=== PATIENT | male | born 1995 | race Caucasian/White ===

== ENCOUNTER 2019-07-25 01:57 | Inpatient (IN) | payer MEDICAID, SELFPAY ==
[2019-07-25] VITALS (125 sets, daily range): BP systolic 104–125; BP diastolic 43–84; PULSE 70–107; RESP 13–25; TEMP 36.5–37.1; O2SAT 90–100
[2019-07-25] MEDS: LORazepam 2 MG/ML VIAL IVP ×2 (02:18→21:51)
[2019-07-25] MEDS: Normal Saline Flush 10 ML SYR IVP ×2 (02:18→07:51)
--- NOTE | 2019-07-25 02:45 | W.PM.HP.N ---
Date of service: 07/25/19 Time of Service: 02:45 Assessment and Plan Assessment and plan (1) Overdose of methylphenidate: Start date: 07/25/19 Status: Acute Assessment and plan: This is a 23-year-old gentleman who was transferred from [facility] ED after using IV drugs at home including heroin and methylphenidate. He does have a problem with recurrent IV drug use and tends to smash up anything that he has an inject it according to his sibling who delivered him to the [facility] ED. He is not having problems with airway maintenance at this time and with sedation his agitation is improved. We will continue IV Ativan and monitor closely for airway obstruction in the ICU. He appears to have more agitation as with the methylphenidate than sedation with the opiates with his reported IV injections recently. We will continue IV hydration and support. Long-term the patient may benefit from reestablishing with outpatient or inpatient drug treatment. He also needs more intense psychiatric evaluation treatment as an outpatient. (2) Psychomotor agitation: Start date: 07/25/19 Status: Acute Assessment and plan: Continue IV Ativan with close monitoring of airway. (3) IVDU (intravenous drug user): Status: Chronic Assessment and plan: Patient will require possible inpatient and at least more intensive outpatient treatment for his recurrent addictive behavior which is life-threatening. (4) PTSD (post-traumatic stress disorder): Status: Chronic Assessment and plan: Patient does have severe depressive symptoms at times and has had suicidal ideation and attempts in the past. He should be considered for inpatient psych treatment as she recovers from this overdose. Mental health consultation can be sought once the patient is more alert. History of Present Illness History of Present Illness Chief Complaint: Severe agitated state secondary to IV methylphenidate overdose Narrative: This is a 23-year-old gentleman who was brought to the [facility] ED by his sibling secondary to severe agitation and vomiting status post IV use of multiple substances including at least Suboxone, heroin and his Reglan which he would crush and injected. He has been doing this in the past but he relapses with his drug abuse. Is on Suboxone chronic opioid addiction. He also is prescribed Ritalin for ADHD and usually functions very well. He chronically has a mood disorder, smokes cigarettes with a rescue inhaler and has panic with agoraphobia/PTSD. I do not think he is in ongoing counseling. He has poor insight and has frequent relapses with inpatient treatment in the recent past and attempted suicide while inpatient. When the patient was treated and seen in the [facility] ED he responded to IV Ativan up to 3 mg and was sleeping at the time of transfer. He had tachycardia and fever which had resolved he had no further nausea or vomiting in the ED. It did not think he aspirated but were concerned about his airway maintenance with sedation as treating his overdose. He did receive IV hydration for slight hypotension but his tachycardia and fever as stated did resolve. Upon arrival to ICU at [facility] he became agitated again with stimulation and did receive more IV Ativan with good response and without oversedation maintaining a good airway. He had no further nausea or vomiting once again he did not appear to have aspirated. No further history review of systems was obtainable from the patient and his overdose and sedated state. Insulin was not available at this facility for further questioning. Review of Systems Narrative: As per review of [facility] ED otherwise not obtainable from patient because of mental status changes and agitation, sibling is not present as was with [facility] ED. Unobtainable due to endotracheal tube [facility] Medical History (Updated 07/25/19 @ 14:40 by Elijah Durant) ADHD (attention deficit hyperactivity disorder) (Acute) IBS (irritable bowel syndrome) (Chronic) Nicotine dependence with current use (Acute) Opioid abuse (Acute) PTSD (post-traumatic stress disorder) (Chronic) Surgical History (Updated 07/25/19 @ 07:42 by Elijah Durant) circumcision (Acute) Family History (Updated 07/25/19 @ 14:42 by Elijah Durant) Mother Depression Social History (Updated 07/25/19 @ 14:43 by Elijah Durant) Smoking/Tobacco Use Status: Current every day Drug use: Daily Substance use type: heroin and methamphetamine Meds Home Medications and Allergies Home Medications Medication Instructions Recorded Confirmed Type methylphenidate HCl 20 mg PO QID 07/25/19 07/25/19 History Allergies Allergy/AdvReac Type Severity Reaction Status Date / Time No Known Allergies Allergy Verified 07/25/19 02:50 Exam Narrative Exam Narrative: General: Patient is thin and appears appropriate for age though chronically ill, moderate distress with agitation and fidgety until Ativan IV given, alert and oriented to person and place only. HEENT: Normocephalic with eyes revealing pupils equal and react to light symmetrically, extraocular movement intact and sclera anicteric. Oropharynx with moist pink mucosa and fair dentition. External ears normal. Neck: Supple without JVD. Back: Stooped posture with no CVA tenderness. Lungs: Fair aeration and clear to auscultation percussion with no expiratory wheeze and no focalizing rales or rhonchi. Normal I:E ratio. Heart: Regular rate and rhythm at the time of my exam with no murmurs gallops appreciated. Abdomen: Scaphoid contour, soft and nontender to palpation with no palpable hepatosplenomegaly or masses. No focal guarding. Bowel sounds positive in all quadrants. Genitalia/rectal: Exam deferred. Extremities: Without clubbing, cyanosis or edema. Old and fresh needle tracks along the veins of the forearms noted. No erythema, induration or evidence of cellulitis over the arms bilaterally. Neuro: Agitated but no focal motor deficits with sensory not tested. Cranial nerves II through XII grossly intact. Psych: Agitated and slightly delirious with patient not focusing well with his agitation and hyperactivity. He is restless. Skin: Needle track boss over the forearms as mentioned at various stages of recent use, no rashes, warm and dry. Results Imaging Additional studies: Lab obtained at [facility] ED: ESR 14 mm/h, blood cultures x2 were performed, procalcitonin 0.6 which is slightly elevated with high normal being 0.5, troponin less than 0.06, TSH 1.17, CRP elevated at 7.89, UA negative, urine drug screen positive for opiates and buprenorphine, lipase less than 30, CMP with creatinine 0.7, calcium 9.4, sodium low at 136, potassium 3.9, TCO2 28.0, total protein 7.9 and albumin 4.1 with liver functions normal except for low ALT at 19, random glucose 100 ,total CK 92, CBC had a white count elevated at 10.7 which is just above normal and differential predominantly polys 81%, H&H low at 13.9 over the 40.8, MCV normal 84.1 and platelet count normal 209, lactic acid was normal at 1.4. EKG: report reviewed (Normal sinus rhythm with tachycardia, no acute ST-T changes and RR prime V1 suggesting incomplete RBBB) Imaging Studies: Chest x-ray showed no focal infiltrates with exam limited. Labs Result diagrams: 07/25/19 06:22
[2019-07-25] MEDS: LORazepam 2 MG/ML VIAL 1 MG IVP ×10 (05:19→23:55)
[2019-07-25 07:10] LABS: ALT 14 U/L (16-63); AST 13 U/L (15-37); Albumin 2.9 g/dL (3.4-5.0); Alkaline Phosphatase 81 U/L (46-116); Anion Gap 7.6 mmol/L (3-11); BUN 9 mg/dL (7-18); Bilirubin, Total 0.8 mg/dL (0.2-1.0); CO2 23.4 mmol/L (21.0-32.0); CREATININE 0.73 mg/dL (0.70-1.30); Calcium 7.8 mg/dL (8.5-10.1); Chloride 105 mmol/L (98-107); Glucose 92 mg/dL (74-106); Magnesium 1.6 mg/dL (1.8-2.4); Potassium 3.8 mmol/L (3.5-5.1); Sodium 136 mmol/L (136-145); Total Protein 6.3 g/dL (6.4-8.2)
[2019-07-25 07:11] LABS: INR 1.2 (0.9-1.1); Prothrombin Time 12.3 sec (9.3-11.0); Troponin I < 0.05 ng/Ml (<0.06)
--- NOTE | 2019-07-25 07:49 | INITIAL_ITS ---
Care Management Initial Assess REASON FOR HOSPITALIZATION:: Intravenous overdose ritalin, seroquel, trazodone PAST MEDICAL HISTORY/PAST SURGICAL HISTORY:: ADHD, IBS, Opioid abuse, PTSD, current everyday tobacco smoker. 23-year-old gentleman who was brought to the [facility] ED by his sibling secondary to severe agitation and vomiting status post IV use of multiple substances including at least Suboxone, heroin and his Reglan which he crushed and injected. He is on Suboxone for chronic opioid addiction. Chronic mood disorder, smokes cigarettes with a rescue inhaler and has panic with agoraphobia/PTSD. Poor insight, frequent relapses with inpatient treatment in the recent past and attempted suicide while inpatient. PREVIOUS FUNCTIONAL STATUS/SOCIAL/FAMILY SUPPORTS:: Cali resides in [place], [place]. He was brought to [facility] emergency department by his sibling for overdos e, with vomiting. His mother, Katina also resides in [place], [place]. CURRENT FUNCTIONAL STATUS:: Cali was sitting up in his bed, visiting with his mother and sister. He struggled throughout the morning with wanting to leave, and had periods of anxiety. ADVANCE DIRECTIVES:: None on file at [facility]. Has patient been provided with information about the portal?: No Did the patient sign up for the portal?: No CODE STATUS:: Full Code INSURANCE COVERAGE / FINANCIAL ISSUES:: Medicaid CURRENT HOME/COMMUNITY SERVICES/EQUIPMENT:: No current services or equipment at this time. PRIMARY CARE PHYSICIAN:: Guy Munoz POTENTIAL DISCHARGE NEEDS:: Contact with [facility]t[employer] Tester, discussion around substance abuse supports, likely MH Crisis Screening and safety planning. PATIENT/FAMILY EDUCATION NEEDS:: Review of instructions, discussion around self care needs, Ask Me Three. ANTICIPATED BARRIERS TO DISCHARGE:: Possible withdrawal requiring medical intervention. Discussion around MH consult/crisis screening. TRANSPORTATION:: TBD by disposition. PLAN:: Cali will continue to be closely monitored and treated in the ICU at this time. CM will continue to follow and support planning of interventions re: safe discharge planning.
--- NOTE | 2019-07-25 10:41 | PHARADMIT ---
Addendum entered by Lucille Qureshi 07/28/19 13:46: VS ok, no labs/lytes cooperative, using Nicotine inhaler, refuses patch Waiting for bed @ [facility] Addendum entered by Dave Carrero III 07/27/19 11:46: Pharmacy Note Subjective Patient transferred to [facility], has multiple mental health issues. Continues to express suicidal ideation. Objective VS-OK No Labs Assessment MD using Suboxone to treat herion/opiate issues. Plan CM working on transfer a psychiatric facilility Addendum entered by Karina Munoz 07/26/19 14:50: Pharmacy Note Subjective effects of stimulant overdose have resolved; pt expressing suicidal thoughts per progress note Objective VS-okay mag-pending Assessment few one time suboxone orders, scheduled for daily starting tomorrow heparin discontinued Plan continue to watch VS, labs and for med changes Original Note: Admission Pharmacy Clinical Review intravenous overdose ritalin/suboxone/heroin? Code Status Full Code Current Weight 64.8 kg Renally Cleared and Narrow Therapeutic Index Meds Crcl ~130 mL/min current meds okay QTc Value / Action Taken none BP Control, Fever BP 113/63 afebrile Electrolytes reviewed mag 1.6 DVT Prophylaxis heparin Opiate Usage / Scheduled Bowel Regimen Ordered no/prn Plt/SCr for Heparin / Enoxaparin plt- not done SCr 0.73 INR for Warfarin n/a H/H stable, WBC/Bands labs not done Antibiotic appropriateness none Cultures and Sensitivities none Surgical ABX d/c within 24 hr n/a DM control / Insulin Dosing BG 92 none Heart Failure (Check EF%) (SHANNON's, B-Block, Diuretics) none IV to PO Switch n/a Home Meds Reviewed no home meds listed; per H+P on suboxone, ritalin, rescue inhaler Home Meds Not Ordered no home meds ordered Comments no mag replacement ordered yet
--- NOTE | 2019-07-25 11:00 | NUR.NOTE ---
1030 Patient awake, crying, anxious, insisting he was going outside for a cigarette. He pulled his cardiac leads, 02 sat monitoring probe and blood pressure cuff off. He asked for the phone to make a phone call. He stood up to void in urinal with 2 nurses assisting him as his gait was unsteady. Ativan 1 mg Ativan given IVP. Deon Olvera CNA and Graciela Jaeger RN in room assisting patient emotionally and physically for safety. 1035 Dr. Charles was notified of patient status. 1040 Dr. Charles in room to talk to and assess patient. 1045 Patient resting quietly in bed with eyes closed. Patient fell asleep before he was able to make a phone call. Nursing Note:
[2019-07-25] MEDS: Normal Saline 1,000 ML 125 ML IV ×2 (11:17→18:15)
[2019-07-25] MEDS: Buprenorphine/Naloxone 8 mg/2 mg FILM 1 EACH SL (14:36)
--- NOTE | 2019-07-25 14:46 | NUR.NOTE ---
Patient is waking up. He is crying. His girlfriend, mother, and grandparents are in the room consoling patient at this time. He just took his dose of Suboxone and is drinking odell giovanny. Nursing Note:
--- NOTE | 2019-07-25 17:38 | PGE_ITS ---
Date of Service Date of service: 07/25/19 Time of Service: 17:39 Subjective Subjective Interval history since last seen: Events: Became alert and threatening to leave in late morning, agititated. Given nicotrol inhaler. treated with lorazepam. Physcial exam noted pupils 7mm marah, clammy skin, sniffles, track boss on arms. Patient reported taking 12-16mg suboxone daily on street. Given 8mg/2mg dose here. Monitor and consider redosing prn. I conducted family meeting around 2 pm for 30 minutes. Patient was sedated at the time. Mother, grandfather, grandmother, GF there. They reviewed his history of learning disability, severe anxiety, and drug use. They are concerned that he is not competent to make decisions. Confirm that he has been shooting up methylfenidate and other meds at times. They want him to get help. We discussed options for getting into MAT treatment, getting additional evaluation including neuropsychiatric, and addiction treatment options. The patient has expressed interest in [facility] and a desire to get off drugs. Patient had another episode of agitation around 4pm and treated with additional lorazepam for safety. Contininuing ICU monitoring given mental status. No cardiac events, he is pulling off the monitor. Okay to stop this if he does not tolerate. 30-45 minutes critical care time spent re-evaluating and monitoring patient throughout the day. Objective Objective Clinical Data: Abnormal lab results 07/25/19 07/25/19 Range/Units 06:22 06:22 PT 12.3 H (9.3-11.0) sec INR 1.2 H (0.9-1.1) Calcium 7.8 L (8.5-10.1) mg/dL Magnesium 1.6 L (1.8-2.4) mg/dL AST 13 L (15-37) U/L ALT 14 L (16-63) U/L Total Protein 6.3 L (6.4-8.2) g/dL Albumin 2.9 L (3.4-5.0) g/dL Vital Signs Temperature 36.8 C 07/25/19 15:51 Temperature Source Temporal Artery Scan 07/25/19 15:51 Pulse 81 07/25/19 16:02 Pulse 80 07/25/19 17:10 Respiratory Rate 18 07/25/19 17:00 Respiratory Effort 07/25/19 15:51 Respiratory Depth Normal 07/25/19 15:51 Respiratory Pattern Normal 07/25/19 15:51 Blood Pressure 125/54 L 07/25/19 16:02 Blood Pressure Mean 72 07/25/19 16:02 Blood Pressure Position Supine 07/25/19 15:51 Pulse Oximetry 97 07/25/19 17:22 Oxygen Delivery Method Room Air 07/25/19 17:22 Oxygen Flow Rate 0 07/25/19 17:22 Intake & Output 07/24/19 07/25/19 07/25/19 23:59 11:59 23:59 Intake Total Output Total 1974 400 / 2375 Balance -1954 / - Weight 64.8 kg Intake: IV Output: Urine 1974 / 2375 Other: Urine Color Yellow Yellow Urine Appearance Clear Clear Urine Odor Normal Normal Comment Voiding in urinal with 2 assist to stand. Voiding Methods Urinal Urinal Laboratory Results PT 12.3 sec (9.3-11.0) H 07/25/19 06:22 INR 1.2 (0.9-1.1) H 07/25/19 06:22 Sodium 136 mmol/L (136-145) 07/25/19 06:22 Potassium 3.8 mmol/L (3.5-5.1) 07/25/19 06:22 Chloride 105 mmol/L (98-107) 07/25/19 06:22 Carbon Dioxide 23.4 mmol/L (21.0-32.0) 07/25/19 06:22 Anion Gap 7.6 mmol/L (3-11) 07/25/19 06:22 BUN 9 mg/dL (7-18) 07/25/19 06:22 Creatinine 0.73 mg/dL (0.70-1.30) 07/25/19 06:22 Estimated GFR/1.73 m2 >= 60.00 (mL/min/1.73m2) 07/25/19 06:22 Glucose 92 mg/dL (74-106) 07/25/19 06:22 Calcium 7.8 mg/dL (8.5-10.1) L 07/25/19 06:22 Magnesium 1.6 mg/dL (1.8-2.4) L 07/25/19 06:22 Total Bilirubin 0.8 mg/dL (0.2-1.0) 07/25/19 06:22 AST 13 U/L (15-37) L 07/25/19 06:22 ALT 14 U/L (16-63) L 07/25/19 06:22 Alkaline Phosphatase 81 U/L (46-116) 07/25/19 06:22 Troponin I < 0.05 ng/Ml (<0.06) 07/25/19 06:22 Total Protein 6.3 g/dL (6.4-8.2) L 07/25/19 06:22 Albumin 2.9 g/dL (3.4-5.0) L 07/25/19 06:22
--- NOTE | 2019-07-25 18:42 | NUR.NOTE ---
Nursing Note: 1600 Pt exhibiting increasing restlessness after departure of mother and girlfriend, climbing out of door side of bed stating he wanted to use a real bathroom. Oblivious to tension on IV line. Redirected with 2-nurse assist to get out of window side of bed. Able to be convinced to stand and void in urinal. Unsteady on feet. Impulsive. Two-nurse assist to redirect him back into the bed and managed the IV and monitor lines. notifed about increasing agitation.
[2019-07-26] VITALS (52 sets, daily range): BP systolic 94–116; BP diastolic 54–67; PULSE 60–99; RESP 10–33; TEMP 36.5–36.9; O2SAT 94–99
[2019-07-26] MEDS: LORazepam 2 MG/ML VIAL 1 MG IVP (00:05)
[2019-07-26] MEDS: LORazepam 2 MG/ML VIAL IVP ×5 (01:18→06:10)
[2019-07-26] MEDS: Normal Saline 1,000 ML 125 ML IV ×2 (02:35→10:51)
[2019-07-26] MEDS: Buprenorphine/Naloxone 8 mg/2 mg FILM 1 EACH SL ×2 (03:51→14:34)
[2019-07-26] MEDS: hydrOXYzine HCL 50 MG TAB PO ×3 (03:51→18:56)
[2019-07-26] MEDS: Heparin 5,000 UNITS/ML VIAL 5000 UNITS SC (05:13)
[2019-07-26 06:30] LABS: HGB 13.1 g/dL (13.5-17.5); Mean Corp. HGB Concentration 34.5 g/dL (32.0-36.0); Mean Corpuscular Hemoglobin 29.2 pg (27.0-33.0); Mean Corpuscular Volume 84.6 fL (80-95); Mean Platelet Volume 8.3 fL (8.0-11.0); Platelet Count 213 x1000/uL (130-400); RBC 4.49 m/cumm (4.50-6.00); RBC Distribution Width 12.7 % (11.8-14.1); White Blood Cell Count 5.77 k/cumm (4.4-10.8)
--- NOTE | 2019-07-26 09:26 | NUR.NOTE ---
0915--Patient woke up sat on side of bed and stated I'm ready to go home. This nurse encouraged patient to lie back in the bad so I could put the bed in the chair position and asked patient if he was hungry. Patient states yes. This nurse placed patient breakfast tray in room and noted patient was resting quietly with eyes closed at this time. Nursing Note:
--- NOTE | 2019-07-26 13:37 | W.PM.PROGNOT ---
Date of Service Date of service: 07/26/19 Time of Service: 13:37 Assessment and Plan Assessment and plan (1) Overdose of methylphenidate: Status: Acute Assessment and plan: At this point affects of stimulant overdose have resolved. Intermittent somnolence associated with high doses of lorazepam overnight, but improving. At this point he is clearly expressing suicidal thoughts with specific plans. He should be evaluated by crisis team before going home. (2) IVDU (intravenous drug user): Status: Chronic Assessment and plan: polysubstance. Will rescreen for HIV and Hep B/C if we can get another blood draw before discharge. (3) Opiate dependence: Status: Acute Assessment and plan: Symptoms and signs of opioid withdrawl improved with suboxone. He is tolerating 16mg over the past 24 hours. I will continue at this dose for now. If we are able to set up an outpatient treatment plan, I can prescribe for up to a week as I am waivered. Other option would be a taper regimen, but with his history we should make every effort to engage in formal treatment. assistant coach coming to help with treatment navigation as well. (4) Suicidal ideation: Status: Acute Assessment and plan: as above. (5) Smoker: Status: Acute Assessment and plan: NRT prescribed. He isn't interested in quitting. (6) DVT prophylaxis: Status: Acute Assessment and plan: At this point he is active and given age and low risk medical prophylaxis not indicated. Subjective Subjective Patient reports: denies bowel movement, diarrhea, nausea, vomiting and fever Interval history since last seen: 24 hr: intermittent agititation overnight, recieved 14mg of lorazepam total. None given since 7am. Given 2nd dose 8mg bup/naloxone at 3am Becoming more alert this afternoon. He denies pain. He states he is always depressed. When asked about SI, states he isn't sure. No BMs, states he does get constipated. Exam Narrative Exam Narrative: General: Sleepy, arouses with voice. Holds head up and has conversation without agitation, but dozes off when head back on pillow. No acute distress. Later agitated and threatening to leave and to hang himself or inject himself with bleach. HEENT: Atraumatic. MMM, pupils 5mm marah, reactive Lungs: CTAb, nl effort. CV: RRR, no m/g abd: soft, nt/nd ext: no cynosis, edema. Objective Objective Clinical Data: Abnormal lab results 07/26/19 Range/Units 06:13 RBC 4.49 L (4.50-6.00) m/cumm Hgb 13.1 L (13.5-17.5) g/dL Hct 38.0 L (40.0-50.0) % Vital Signs Temperature 36.6 C 07/26/19 12:20 Temperature Source Temporal Artery Scan 07/26/19 12:20 Pulse 66 07/26/19 08:00 Pulse 69 07/26/19 12:20 Respiratory Rate 15 07/26/19 12:20 Respiratory Effort Non-Labored 07/26/19 12:20 Respiratory Depth Normal 07/26/19 12:20 Respiratory Pattern Normal 07/26/19 12:20 Blood Pressure 110/57 L 07/26/19 08:00 Blood Pressure Mean 68 07/26/19 08:00 Blood Pressure Position Supine 07/26/19 07:32 Pulse Oximetry 96 07/26/19 12:20 Oxygen Delivery Method Room Air 07/26/19 12:20 Oxygen Flow Rate 0 07/26/19 12:20 Pain Level 10 07/26/19 03:20 Comment 07/25/19 18:00 Intake & Output 07/25/19 07/26/19 07/26/19 23:59 11:59 23:59 Intake Total 1350.833 / 2482.666 5551 / 2100 Output Total 1600 / 3575 2175 / 2175 Balance -249.167 / -2204.167 -75 / -75 Weight 65.9 kg Intake: IV 870.833 / 606.094 9565 / 1999 Oral 480 / 480 100 / 100 Output: Urine 1600 / 3575 2175 / 2175 Other: Urine Color Yellow Yellow Urine Appearance Clear Clear Urine Odor Normal Normal Comment Pt getting OOB to void at this time Patient voids in urinal. Patient voids in urinal. Voiding Methods Urinal Urinal Laboratory Results WBC 5.77 k/cumm (4.4-10.8) 07/26/19 06:13 RBC 4.49 m/cumm (4.50-6.00) L 07/26/19 06:13 Hgb 13.1 g/dL (13.5-17.5) L 07/26/19 06:13 Hct 38.0 % (40.0-50.0) L 07/26/19 06:13 MCV 84.6 fL (80-95) 07/26/19 06:13 MCH 29.2 pg (27.0-33.0) 07/26/19 06:13 MCHC 34.5 g/dL (32.0-36.0) 07/26/19 06:13 RDW 12.7 % (11.8-14.1) 07/26/19 06:13 Plt Count 213 x1000/uL (130-400) 07/26/19 06:13 MPV 8.3 fL (8.0-11.0) 07/26/19 06:13 PT 12.3 sec (9.3-11.0) H 07/25/19 06:22 INR 1.2 (0.9-1.1) H 07/25/19 06:22 Sodium 136 mmol/L (136-145) 07/25/19 06:22 Potassium 3.8 mmol/L (3.5-5.1) 07/25/19 06:22 Chloride 105 mmol/L (98-107) 07/25/19 06:22 Carbon Dioxide 23.4 mmol/L (21.0-32.0) 07/25/19 06:22 Anion Gap 7.6 mmol/L (3-11) 07/25/19 06:22 BUN 9 mg/dL (7-18) 07/25/19 06:22 Creatinine 0.73 mg/dL (0.70-1.30) 07/25/19 06:22 Estimated GFR/1.73 m2 >= 60.00 (mL/min/1.73m2) 07/25/19 06:22 Glucose 92 mg/dL (74-106) 07/25/19 06:22 Calcium 7.8 mg/dL (8.5-10.1) L 07/25/19 06:22 Magnesium 1.6 mg/dL (1.8-2.4) L 07/25/19 06:22 Total Bilirubin 0.8 mg/dL (0.2-1.0) 07/25/19 06:22 AST 13 U/L (15-37) L 07/25/19 06:22 ALT 14 U/L (16-63) L 07/25/19 06:22 Alkaline Phosphatase 81 U/L (46-116) 07/25/19 06:22 Troponin I < 0.05 ng/Ml (<0.06) 07/25/19 06:22 Total Protein 6.3 g/dL (6.4-8.2) L 07/25/19 06:22 Albumin 2.9 g/dL (3.4-5.0) L 07/25/19 06:22
--- NOTE | 2019-07-26 13:39 | PDOC.CMPRO ---
Care Management Progress Note S/O: Cali continues to be closely monitored in the ICU. He is being treated for withdrawal and agitation with lorazepam and suboxone. Per MD meeting with family medical history includes learning disability, severe anxiety and substantial drug abuse. When alert, Cali becomes agitated and demands to leave AMA. CM provided patient education around requirement for crisis screening prior to discharge due to concern for SI with history of attempt while in a inpatient setting. CM met with Cali and his mother to provide patient education around safety planning and requirement of MH screening. Cali made multiple suicidal statements when CM met with him. When CM reviewed concerns around Cali's statements he reported no I said I wish not that I would. He attempted to pull out his IV, CHRISTOPHER Hernandez intervened successfully and Cali identified her as a support person and asked this proposal manager writer to leave. AURELIO A: 23 year old male admitted to [facility] 07/25/19 for Intravenous overdose of ritalin/suboxone/heroin P: Cali will be evaluated by a [facility] Crisis Screener and meet with a Prep Manager as well. CM will continue to follow and support discharge planning per recommendations and patient wishes.
--- NOTE | 2019-07-26 14:48 | NUR.NOTE ---
At approximately 1300 this afternoon patient woke up, was asking for his parents. This nurse told him his Mom was on her way and would be here any time. Patient upset that his parents were not here. Patient's Mom stated to this nurse (this morning via phone call) she slept in this morning as she did not feel well and was very concerned about Cali. Patient became angry and stated I'm going home. Dr. Charles and Annia Rios from care management were notified and came to patient's room. This nurse explained to patient that he had had a lot of medications and Dr. Charles would be the one to determine when he is ready to be discharged. His mother, girlfriend and little brother arrived in room. Patient again stated he was going home and his mother was to take him home. His mother and girlfriend told patient they were not comfortable taking him home and he was not ready to go home. His mother stated she could not handle him at home like this. Patient became very upset and threw everything on the bedside table across the room. Patient got OOB (slightly unsteady gait) pulled his cardiac lead set blood pressure cuff off and started pulling at his IV to pull it out as he again stated he was going home. This nurse firmly encouraged patient to leave his IV intact. With much persuasion, several times, he did not pull his IV out. Dr. Charles and Annia Rios locker room manager in room. They talked with patient for approximately 15 minutes. Patient requested everyone leave the room. This nurse stayed in room with patient. Patient asked this nurse for some bleach. When asked why he wanted bleach he responded with I want to put it in my vein to kill myself. This nurse continued to support patient in room then at approximately 1434 gave the patient his prescribed Suboxone and Atarax. This nurse continued to support patient and keep patient safe. Nursing Note:
[2019-07-26 15:27] LABS: Magnesium 1.7 mg/dL (1.8-2.4)
--- NOTE | 2019-07-26 16:46 | PDOC.MHCN ---
Date of service: 07/26/19 Time of Service: 14:15 Mental Health Crisis Note Presenting Issue How did you arrive at the ED and why did you come: Client was in ICU for intravenous over dose, with the requirement to see a mental health screener before discharge. This technical report writer arrived at the hospital to screen patient for suicidality. Precipitating Factors Cali is a 23 year old male with opiate dependency, he resides with his mother - Adrienne Booth, sujatha Shay, step father and siblings. Cali reported to this technical report writer that he was depressed and will isolate, as soon as, he gets home. That he will OD on his Ritalin, he'll take it all and it will end it. Patient asked nurse, Mary Bergeron, earlier today, if they had bleach, when the nurse asked why he would need bleach, he replied I want to put it in my vein to kill myself. Cali continued to make multiple suicidal statements, to the gardening manager to the affect that he wanted to blow his head off. Family met with this technical report writer and reported that they felt that they could not provide Cali with the care that he needs, as he manipulates and is dishonest, and they felt that he would not tell them the truth. Disposition BEHAVIOR: Cali threatened to remove his IV and leave AMA, he was informed that the medical staff would just put another one in. Cali was labile, and combative to limit setting. His frustration tolerance was low. He refereed to family members as fucking cunrosemary when asked to elaborate he changed the subject to how he felt that no one cared and how he felt unsafe. EYE CONTACT: Client was able to maintain appropriate eye contact when eyes stayed open. however, at times his eyes were half closed or all the way closed. MOOD: Client appears to be labile, irritable, angry, depressed, and tearful. AFFECT: Client appeared to see labile, frustrated, irritable, and oppositional during the assessment. APPETITE: Client ate during the assessment. SLEEP(trouble falling/staying asleep: It was reported that the client had been resting for the majority of the day. Plan Client will remain at [facility] and will be screened by a [facility] for involuntary treatment. Signature Clinician's Name/Title: Nata Garibay-Jeni - Emergency, honey grader and blender, mental health screener
--- NOTE | 2019-07-26 18:50 | CMPROGNOTE_ITS ---
Care Management Progress Note INVOLUNTARY FOR INPATIENT PSYCHIATRIC STABILIZATION. Cali has not been appropriate when alert, and struggles to accept limits appropriately. OMEGA FABIAN called prior to MH screening due to increased agitation. Cali is no demonstrating appropriate coping and communication skills at this time. Safety plan has been established with patient, and care team, to adhere to patient goals, identify restrictions based on behavioral status, address nutrition, and determine allowed personal belongings, tools for hygiene and personal care. Determine level of activity including ambulation, level of supervision, visitors, and determine privileges based on behaviors and level of engagement by pt. SAFETY PLAN: 1. Will remain on suicide precautions. In Paper Clothes or Hospital Gown. 2. Will remain in room under direct supervision of one-on-one staff at all times provided by [employer]; JUANY, FISH AND WILDLIFE BIOLOGIST product demonstrator. 3. May have paper cups, plates, finger foods. 4. Follow [facility] Management of the Admitted Behavioral Health Patient policy. 5. Comfort bath system only. 6. No personal belongings 7. Visitors-Limited to his mother, Adrienne at this time. 8. Activities: Soft items permitted per RN discretion. 9. Due to INVOLUNTARY status, Cali will have a second certification within twenty four hours with [facility] Psychiatrist. Patient is unable to leave [facility], as he is being held involuntarily by [facility]. Patient is currently involuntarily at [facility] and seeking inpatient admission when a bed becomes available. [facility] Frontline Binder Fixer will continue seeking placement. Please contact the Food Services Coordinator Client Technical Specialist ([phone]) and [facility] Binder Fixer ([phone]) for any needed changes in the Safety Plan. Safety plan has been provided to interdepartmental care team. - MH Services (Omit if N/A) Current MH Services: Psychiatric Inp (INVOLUNTARY)
[2019-07-26] MEDS: LORazepam 1 MG TAB PO (21:40)
--- NOTE | 2019-07-26 21:55 | CMPROGNOTE_ITS ---
Care Management Progress Note INVOLUNTARY FOR INPATIENT PSYCHIATRIC STABILIZATION. Cali continues to struggle to accept limits appropriately, he engaged with Psychiatrist during 2nd Certification and was found to meet criteria to continue to be held involuntarily. OMEGA FABIAN immediately after [facility] certification as Cali began to posture, make verbal threats and report that he was leaving and willing to fight. OMEGA FABIAN once again cleared without restraint due to de-escalation techniques and consistent directives. Cali was successfully transferred to M/S floor and into transition bed area. He then became angry, kicking the mas and posturing toward academic support assistant. Shortly thereafter Cali became teary and struggled to express his emotions and communicate. Cali continues to demonstrate maladaptive coping and communication skills at this time, and required an extended period of support to regulate. Anticipate Cali will r equire consistent, assertive limit setting as he is reportedly manipulative and engages in power struggles. He attempts to direct care and barter for privileges. Cali will be directed that when he follows expectations, his privileges will increase. CM reviewed safety plan changes due to removal of phone, and agreed to revisit safetly plan with Cali in the morning as well as review of status and patient rights per his request. Cali is going to attempt to rest this evening and maintain his currently calm demeanor. [facility] crisis screener, Kasey, told Cali she would be available for support via phone as needed and encouraged him to request she be paged at [phone] if needed. Kasey reported she would return to [facility] in the morning to introduce Cali to [place]; crisis screener scheduled for tomorrow. Safety plan has been established with patient, and care team, to adhere to patient goals, identify restrictions based on behavioral status, address nutrition, and determine allowed personal belongings, tools for hygiene and personal care. Determine level of activity including ambulation, level of supervision, visitors, and determine privileges based on behaviors and level of engagement by pt. SAFETY PLAN: 1. Will remain on suicide precautions. Permitted to have his own clothing. 2. Will remain in room under direct supervision of one-on-one staff at all times provided by [employer]; JUANY, PAVING BED MAKER supervisor audit clerks. 3. May have paper cups, plates, finger foods, safety spoon. 4. Follow [facility] Management of the Admitted Behavioral Health Patient policy. 5. Comfort bath system only, bathroom available in patient room. 6. No personal belongings 7. Visitors-Limited to his mother, Adrienne at this time. 8. Activities: Soft items permitted per RN discretion, Television and remote permitted at RN discretion. 9. No phone contact at this time. 10. Due to INVOLUNTARY status, Cali will remain at [facility], until disposition is coordinated through [facility]. Patient is currently involuntarily at [facility] and [facility] is seeking inpatient admission when a bed becomes available. [facility] Frontline Poultry Husbandry Teacher will continue seeking placement and reports referrals have been faxed; awaiting continued coordination tomorrow morning. Please contact the Car Changer Glass Cutting Machine Feeder ([phone]) and [facility] Poultry Husbandry Teacher ([phone]) for any needed changes in the Safety Plan. Safety plan has been provided to interdepartmental care team. - MH Services (Omit if N/A) Current MH Services: Psychiatric Inp (Involuntary.)
--- NOTE | 2019-07-27 02:23 | NUR.NOTE ---
Nursing Note: At 2130 hrs., Pt received from ICU staff via wheelchair to Rm 235 Transition Room, fully awake and verbally upset and banging the mas of the room, health team around, redirecting and full support provided by the team, Pt was on tears, continuously pacing and increasingly agitated. Ativan po administered and tolerated well, Finally, stayed on bed and ate chips, ice cream and had chcolate milk .Calmed down & remains on bed. Mental health staff reassured pt of her availability if needed tonight. The financial writer was introduced to pt and established good rapport to pt., Endorsed to [employer] at 2300 hrs., Pt asleep on lying position, facing on the window.
[2019-07-27] MEDS: Buprenorphine/Naloxone 8 mg/2 mg FILM 2 EACH SL (08:13)
[2019-07-27 08:38] VITALS: BP 138/87; PULSE 96; RESP 18; TEMP 37; O2SAT 97
--- NOTE | 2019-07-27 10:44 | CMPROGNOTE_ITS ---
- If Service Date Differs Date of service: 07/27/19 Time of Service: 10:44 Care Management Progress Note INVOLUNTARY FOR INPATIENT PSYCHIATRIC STABILIZATION. Cali continues to struggle to accept limits appropriately. He attempts to bargain and direct his plan of care. Cali's girlfriend Lyn accompanied Mom when she arrived to visit this morning. Mom stated that she feels Lyn will have a positive influence on Cali and recommends that she be allowed to visit. Mental Health screener Rylee present to evaluate Cali and follow up on referrals. LAKESHIA and Jose Roberto are reviewing his information and additional calls are being made. Anticipate Cali will require consistent, assertive limit setting as he is reportedly manipulative and engages in power struggles. Cali will be directed that when he follows expectations, his privileges will increase. CM reviewed safety plan changes and will continue to revise plan if placement is not found later in the day. CM also reviewed status and patient rights. Safety plan has been established with patient, and care team, to adhere to patient goals, identify restrictions based on behavioral status, address nutrition, and determine allowed personal belongings, tools for hygiene and p ersonal care. Determine level of activity including ambulation, level of supervision, visitors, and determine privileges based on behaviors and level of engagement by pt. Huddle held at 10;15 am. Attendees: Dara, Nursing Supervisors, corina Mckee, AURELIO Parikh, nurse Aneudy, CC Sana SAFETY PLAN: 1. Will remain on suicide precautions. Permitted to have his own clothing. 2. Will remain in room under direct supervision of one-on-one staff at all times provided by [employer]; JUANY, POISING INSPECTOR feather curling machine operator. 3. May have paper cups, plates, finger foods, safety spoon. 4. Follow [facility] Management of the Admitted Behavioral Health Patient policy. 5. Comfort bath system only, bathroom available in patient room. 6. No personal belongings 7. Visitors-Limited to his mother, Adrienne and girlfriend Lyn. Visits with Lyn to be supervised by nurse or MH staff. 8. Activities: Soft items permitted per RN discretion, Television and remote permitted at RN discretion. 9. No phone contact at this time except for Mom and Lyn.. 10. Due to INVOLUNTARY status, Cali will remain at [facility], until disposition is coordinated through [facility]. Patient is currently involuntarily at [facility] and [facility] is seeking inpatient admission when a bed becomes available. [facility] Frontline Health Care Liaison will continue seeking placement and reports referrals have been faxed; awaiting continued coordination tomorrow morning. Please contact the Scout Cost Analyst ([phone]) and [facility] Health Care Liaison ([phone]) for any needed changes in the Safety Plan. Safety plan has been provided to interdepartmental care team.
--- NOTE | 2019-07-27 10:59 | PDOC.MHCN ---
Date of service: 07/27/19 Time of Service: 10:59 Mental Health Crisis Note Presenting Issue How did you arrive at the ED and why did you come: Pt was brought to the ER Saturday via ambulance from [facility] after an o.d. of a speedball. Through the course of the weekend he was medically cleared to go home and an EE was written. Precipitating Factors Today Pt is slightly agitated because he wants to see his girlfriend and does not want to be here. I explain that he needs to stay at this time for admission to a hospital. He stated I don't care once they let me out I'm shooting up with all kinds of drugs. I'm going to do it. Mother redirected Pt and he responded well. At other times I had re-directed him and he did so appropriately as well. He behaves like a teenager in how he demands to see her. I spoke with the mother who is with him and she supports a visit as the girlfriend she reports is able to keep him calm. We discuss this in a huddle and agree to allow her to have a visit as long as it is supervised for appropriateness. This visit went well according to the Nurse who supported it. Pt reports that he just ate an egg sandwich and slept well last night. He understands why he is here and is still not willing to go voluntarily. Disposition BEHAVIOR: Pt behaves like a teenager and responds well to humor to redirect him. EYE CONTACT: good MOOD: agitated, depressed, anxious AFFECT: flat and smirking when he is caught not being forthcoming. APPETITE: okay according to Pt SLEEP(trouble falling/staying asleep: Okay according to Pt. Plan Hospitals have been called I am waiting to hear back from them as to bed avaialbility. Signature Clinician's Name/Title: Rylee Díaz MS Emergency Services Clinician
--- NOTE | 2019-07-27 11:08 | PDOC.CMSAFE ---
- If Service Date Differs Date of service: 07/27/19 Time of Service: 11:08 Care Management Safety Plan Safety plan has been established with patient, and care team, to adhere to patient goals, identify restrictions based on behavioral status, address nutrition, and determine allowed personal belongings, tools for hygiene and personal care. Determine level of activity including ambulation, level of supervision, visitors, and determine privileges based on behaviors and level of engagement by pt. Huddle held at 10:15 am. Attendees: Dara, Nursing Supervisors, MH mayaer Rylee, AURELIO Parikh, nurse Aneudy, CC Sana SAFETY PLAN: 1. Will remain on suicide precautions. Permitted to have his own clothing. 2. Will remain in room under direct supervision of one-on-one staff at all times provided by [employer]; JUANY, DEVICE ENGINEER music video director. 3. May have paper cups, plates, finger foods, safety spoon. 4. Follow [facility] Management of the Admitted Behavioral Health Patient policy. 5. Comfort bath system only, bathroom available in patient room. 6. No personal belongings 7. Visitors-Limited to his mother, Adrienne and girlfriend Lyn. Visits with Lyn to be supervised by nurse or staff. 8. Activities: Soft items permitted per RN discretion, Television and remote permitted at RN discretion. 9. No phone contact at this time except for Mom and Lyn.. 10. Due to INVOLUNTARY status, Cali will remain at [facility], until disposition is coordinated through [facility]. Patient is currently involuntarily at [facility] and [facility] is seeking inpatient admission when a bed becomes available. [facility] Frontline Hygiene Assistant will continue seeking placement and reports referrals have been faxed; awaiting continued coordination tomorrow morning. Please contact the Oil Mixer Bicycle Fitter ([phone]) and [facility] Hygiene Assistant ([phone]) for any needed changes in the Safety Plan. Safety plan has been provided to interdepartmental care team.
--- NOTE | 2019-07-27 11:24 | W.NUTCONSULT ---
Date of service: 07/27/19 Time of Service: 11:24 Nutritional Consult ASSESSMENT: 23 year old admitted with suicidal ideation, long hx of IV drug use. Following regular meal plan with poor intake. BMI wnl. Will monitor po intake and weight trends. At high nutritional risk in view of IV drug use and poor intake. Estimated needs: [id number] kcal, 65-75 g protein. 2400 ml fluid. Awaiting rehab placement. MONITORING AND EVALUATION: will monitor po intake and weight trends Time Spent in Nutritional Counseling and Treatment: 0 time spent face to face
[2019-07-27] MEDS: LORazepam 1 MG TAB PO (11:37)
--- NOTE | 2019-07-27 12:06 | W.PM.PROGNOT ---
Date of Service Date of service: 07/27/19 Time of Service: 12:06 Assessment and Plan Assessment and plan (1) Overdose of methylphenidate: Status: Acute Assessment and plan: At this point affects of stimulant overdose have resolved. Intermittent somnolence improved, so I do think it was related to lorazepam. (2) IVDU (intravenous drug user): Status: Chronic Assessment and plan: Rescreen for HIV and Hep B/C pending. (3) Opiate dependence: Status: Acute Assessment and plan: Symptoms and signs of opioid withdrawl improved with suboxone. He received 60 mg yesterday and this morning and does not appear to be opiate toxic or oversedated. We will plan to continue on 60 mg and hopefully can get into a treatment program to continue with medical assisted treatment along with behavioral care. (4) Suicidal ideation: Status: Acute Assessment and plan: No under involuntary hospitalization. Pending placement in psychiatric facility. He is medically cleared for discharge when a bed is found. (5) Smoker: Status: Acute Assessment and plan: NRT prescribed. He isn't interested in quitting. (6) DVT prophylaxis: Status: Acute Assessment and plan: At this point he is active and given age and low risk medical prophylaxis not indicated. Subjective Subjective Patient reports: no new complaints; denies nausea, vomiting, shortness of breath and fever Interval history since last seen: 24 hours: EE paperwork filled out yesterday evening after patient made explicit suicidal threats. 1 dose of lorazepam overnight Patient states he feels fine today. Physically, he denies any fevers, pain, or other concerning symptoms. Today, he denies suicidal ideation and states he made comments yesterday because he was pissed off. Exam Narrative Exam Narrative: General: Alert, sitting up in bed comfortably without nodding off. Speech coherent and intelligible. Not currently agitated. HEENT: Atraumatic. MMM, pupils 4mm marah, reactive Lungs: nl effort. ext: no cynosis, edema. Neurologic: Normal speech. Normal movement of 4 extremities. Grossly coordinated while sitting, but per RN still stumbling a bit on his feet when walking. Objective Objective Clinical Data: Abnormal lab results 07/26/19 Range/Units 15:11 Magnesium 1.7 L (1.8-2.4) mg/dL Vital Signs Temperature 37 C 07/27/19 08:38 Temperature Source Tympanic 07/27/19 08:38 Pulse 96 H 07/27/19 08:38 Pulse Rhythm Regular 07/27/19 09:40 Pulse 76 07/26/19 12:55 Respiratory Rate 18 07/27/19 08:38 Respiratory Effort Non-Labored 07/27/19 09:40 Respiratory Depth Normal 07/27/19 09:40 Respiratory Pattern Normal 07/27/19 09:40 Blood Pressure 138/87 07/27/19 08:38 Blood Pressure Mean 75 07/26/19 16:10 Blood Pressure Position Supine 07/26/19 07:32 Pulse Oximetry 97 07/27/19 08:38 Oxygen Delivery Method Room Air 07/27/19 08:38 Oxygen Flow Rate 0 07/27/19 08:38 Pain Level 0 07/27/19 08:38 Comment 07/25/19 18:00 Intake & Output 07/26/19 07/27/19 07/27/19 23:59 11:59 23:59 Intake Total 825.000 / 2925.000 250 / 250 Output Total 1000 / 3175 Balance -175.000 / -250.000 250 / 250 Intake: IV 585.000 / 2585.000 Oral 240 / 340 250 / 250 Output: Urine 1000 / 3175 Other: Urine Color Yellow Yellow Urine Appearance Clear Clear Comment Voiding clear yelllow urine in urinal. Voiding Methods Urinal Toilet Laboratory Results WBC 5.77 k/cumm (4.4-10.8) 07/26/19 06:13 RBC 4.49 m/cumm (4.50-6.00) L 07/26/19 06:13 Hgb 13.1 g/dL (13.5-17.5) L 07/26/19 06:13 Hct 38.0 % (40.0-50.0) L 07/26/19 06:13 MCV 84.6 fL (80-95) 07/26/19 06:13 MCH 29.2 pg (27.0-33.0) 07/26/19 06:13 MCHC 34.5 g/dL (32.0-36.0) 07/26/19 06:13 RDW 12.7 % (11.8-14.1) 07/26/19 06:13 Plt Count 213 x1000/uL (130-400) 07/26/19 06:13 MPV 8.3 fL (8.0-11.0) 07/26/19 06:13 PT 12.3 sec (9.3-11.0) H 07/25/19 06:22 INR 1.2 (0.9-1.1) H 07/25/19 06:22 Sodium 136 mmol/L (136-145) 07/25/19 06:22 Potassium 3.8 mmol/L (3.5-5.1) 07/25/19 06:22 Chloride 105 mmol/L (98-107) 07/25/19 06:22 Carbon Dioxide 23.4 mmol/L (21.0-32.0) 07/25/19 06:22 Anion Gap 7.6 mmol/L (3-11) 07/25/19 06:22 BUN 9 mg/dL (7-18) 07/25/19 06:22 Creatinine 0.73 mg/dL (0.70-1.30) 07/25/19 06:22 Estimated GFR/1.73 m2 >= 60.00 (mL/min/1.73m2) 07/25/19 06:22 Glucose 92 mg/dL (74-106) 07/25/19 06:22 Calcium 7.8 mg/dL (8.5-10.1) L 07/25/19 06:22 Magnesium 1.7 mg/dL (1.8-2.4) L 07/26/19 15:11 Total Bilirubin 0.8 mg/dL (0.2-1.0) 07/25/19 06:22 AST 13 U/L (15-37) L 07/25/19 06:22 ALT 14 U/L (16-63) L 07/25/19 06:22 Alkaline Phosphatase 81 U/L (46-116) 07/25/19 06:22 Troponin I < 0.05 ng/Ml (<0.06) 07/25/19 06:22 Total Protein 6.3 g/dL (6.4-8.2) L 07/25/19 06:22 Albumin 2.9 g/dL (3.4-5.0) L 07/25/19 06:22
[2019-07-27 15:57] VITALS: BP 96/55; PULSE 105; RESP 18; TEMP 36.2; O2SAT 96
--- NOTE | 2019-07-27 17:20 | PDOC.MHCN_ITS ---
Date of service: 07/27/19 Time of Service: 17:20 Mental Health Crisis Note Presenting Issue How did you arrive at the ED and why did you come: Client was in ICU for intravenous over dose, with the requirement to see a mental health screener before discharge. Through the course of the weekend he was medically cleared to go home and an EE was written. Precipitating Factors Client denies SI/HI. However, when this screener asked him the likelihood of him using drugs after discharge his answer was 'I don't know. The longer I am here the more I want to use.' He told this screener he uses heroin. He reported he h as had several hospitalizations and rehab stays. He said he went to rehab twice this year. He couldn't remember dates. He said that nothing has helped with his addiction. He said he is unwilling to go to a placement voluntarily because nothing helps. He reports he has seen a therapist in the past and would like to start at [facility]. 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 He reports he has a loving family and still lives at home with his mother. Disposition BEHAVIOR: Client is visibly jittery. Appropriate communication/agitated tone. EYE CONTACT: Good eye contact, but somewhat avoidant. MOOD: Visibly agitated, very upset he is being held involuntarily. AFFECT: Enagaged, animated. APPETITE: Client reports he is eating well. SLEEP(trouble falling/staying asleep: Client reports he is sleeping 'fine'. Plan Client will remain on involuntary status and hospitalization will continue to be sought. Rylee Díaz, Emergency Services clinician reported to this screener she has called hospitals and there is currently no bed availability. Care Management safety plan in place.
[2019-07-27 20:12] VITALS: BP 123/74; PULSE 88; RESP 18; TEMP 36.9; O2SAT 98
[2019-07-27] MEDS: traZODone 100 MG TAB PO (22:29)
[2019-07-27] MEDS: QUEtiapine 100 MG TAB 300 MG PO (22:29)
[2019-07-27 23:10] VITALS: BP 116/64; PULSE 90; RESP 16; TEMP 36.6; O2SAT 98
[2019-07-28] MEDS: Buprenorphine/Naloxone 8 mg/2 mg FILM 2 EACH SL (09:46)
[2019-07-28 10:35] VITALS: BP 108/60; PULSE 78; RESP 16; TEMP 37.4; O2SAT 97
[2019-07-28 10:57] LABS: Hepatitis B Surface Ag Negative (Negative)
[2019-07-28 11:09] LABS: Hepatitis C Ab w Rflx HCV PCR Negative (Negative)
[2019-07-28 11:15] LABS: HIV-1/2 Ag & Ab Screen Negative (Negative)
--- NOTE | 2019-07-28 14:27 | DSE_ITS ---
Date of service: 07/28/19 Time of Service: 14:27 DS: Diagnosis Discharge Diagnosis (1) Overdose of methylphenidate: Status: Acute (2) IVDU (intravenous drug user): Status: Chronic (3) Opiate dependence: Status: Acute (4) Suicidal ideation: Status: Acute (5) Smoker: Status: Acute Discharge Plan Disposition Patient Disposition: [facility] Condition: Stable Discharge Details Reason For Visit: INTRAVENOUS OVERDOSE RITALIN/SUBOXONE/HEROIN Admit Date/Time: 07/25/19 01:57 Admit Provider: Elijah Durant Attending Provider: Elijah Durant Primary Care Provider: Guy Munoz Hospital Course Hospital Course: Cali Castillo is a 23 year old man with a history significant for IVDA, PTSD, ADHD, bipolar disorder and tobacco abuse who presented to [facility] and was subsequently transferred to [facility] after injecting multiple substances including heroin, methylphenidate and Suboxone. At the time of his presentation, he was agitated, vomiting, tachycardic with mild hypotension and fever. He was treated with Ativan and IV fluids. He was initially admitted to the ICU for close monitoring. Over the following days, his agitation resolved. He reported that he had been taking 12 to 16 mg of Suboxone which he was getting off of the street. He was initiated on Suboxone 16 mg daily during his hospitalization. He was no longer experiencing symptoms of stimulant overdose. He began verbalizing suicidal thoughts with specific plans. Mental health was consulted and determined that he was unsafe to be discharged home. He was placed on EE status as he was threatening to leave. He was monitored continuously with a 1:1 patient observer as part of his safety plan. On the day of discharge, he states that he was never suicidal. He reports that he presented to the hospital for help when he realized that he had taken too much and that he would not have done that if he wanted to . His family was reportedly concerned about his wellbeing and believed that he needed help. He has been hospitalized in the past. He was accepted at [facility] and will be transferred via [facility] today. At the time of his discharge, his hepat itis B testing is negative, hepatitis C and HIV testing are still pending. He states that he is interested in outpatient treatment for his substance abuse which will need to be set up when he is discharged from [place]. Home Meds and New Rx's Prescriptions: New nicotine 14 mg/24 hr Patch 24 Hour 14 mg transdermal DAILY PRN PRNQty: 0 RF: 0 hydroxyzine HCl 50 mg Tablet 50 mg PO Q4H PRN PRN (Reason: Opioid Withdrawal) Qty: 0 RF: 0 Nicotrol 10 mg Cartridge 0 cartridge inhalation Q2H PRN PRNQty: 0 RF: 0 buprenorphine-naloxone [Suboxone] 8-2 mg Film 2 ea sublingual DAILY Qty: 0 RF: 0 Continued quetiapine 300 mg Tablet 300 mg PO HS RF: 0 trazodone 100 mg Tablet 100 mg PO HS RF: 0 Discontinued methylphenidate HCl 20 mg Tablet 20 mg PO QID RF: 0 Discharge Instructions Instructions: Suicide Prevention for Adults (DC) Activity:: Activity as Tolerated Diet:: As Tolerated DS: Summary Status at Discharge Functional status at discharge: independent ambulation Overall status at discharge: patient is progressing back to baseline Mental Status: mental status grossly normal Speech and Movement: speech and movement normal Mood: congruent mood Affect: normal affect Exam Narrative Exam Narrative: General: laying in bed on left side, awakened easily to verbal stimuli. Verbalizing frustrations about EE status. HEENT: normocephalic, atraumatic, pupils equal and round, EOMI, mucous membranes moist. Neck: supple, no JVD. Respiratory: respirations even and unlabored, lung sounds clear throughout. Cardiovascular: heart has regular rate and rhythm. No murmur appreciated. GI: abdomen soft, nontender, nondistended, normal bowel sounds throughout. Extremities: no clubbing, cyanosis or edema. Psych Mental Status: mental status grossly normal Speech and Movement: speech and movement normal Mood: congruent mood Affect: normal affect DS: Data Vitals/I&O Vitals and I&O: Vital Signs Temperature 37.4 C 07/28/19 10:35 Temperature Source Skin 07/28/19 10:35 Pulse 78 07/28/19 10:35 Pulse Rhythm Regular 07/28/19 10:38 Pulse 76 07/26/19 12:55 Respiratory Rate 16 07/28/19 10:35 Respiratory Effort Non-Labored 07/28/19 10:38 Respiratory Depth Normal 07/28/19 10:38 Respiratory Pattern Normal 07/28/19 10:38 Blood Pressure 108/60 07/28/19 10:35 Blood Pressure Mean 75 07/26/19 16:10 Blood Pressure Position Supine 07/26/19 07:32 Pulse Oximetry 97 07/28/19 10:35 Oxygen Delivery Method Room Air 07/28/19 10:35 Oxygen Flow Rate 0 07/28/19 10:35 Pain Level 0 07/28/19 10:35 Comment 07/25/19 18:00 Intake & Output 07/27/19 07/28/19 07/28/19 23:59 11:59 23:59 Intake Total 250 / 500 240 / 240 Balance 250 / 500 240 / 240 Intake: Oral 250 / 500 240 / 240 Other: Urine Color Yellow Comment pt voiding independently. pt voiding ad yeni; urine not assessed at this time Voiding Methods Toilet Toilet Data Completed and Pending Labs on day of discharge: Labs from last 24 hours 07/26/19 15:11 Hep Bs Antigen Negative PFSH Medical History ADHD (attention deficit hyperactivity disorder) (Acute) IBS (irritable bowel syndrome) (Chronic) Nicotine dependence with current use (Acute) Opiate dependence (Acute) Opioid abuse (Acute) PTSD (post-traumatic stress disorder) (Chronic) Smoker (Acute) Suicidal ideation (Acute) Surgical History circumcision (Acute) Family History Mother Depression Social History Smoking/Tobacco Use Status: Current every day Drug use: Daily Substance use type: heroin and methamphetamine
--- NOTE | 2019-07-28 15:14 | PDOC.MHCN ---
Date of service: 07/28/19 Time of Service: 15:14 Mental Health Crisis Note Presenting Issue How did you arrive at the ED and why did you come: Pt was brought to [facility] via ambulance on from [facility] after a reported suicide attempt via o.d. He has been on EE status since Saturday. Precipitating Factors Pt denied current or hx of SI stating why would I ask for help if I wanted to kill myself? He feels he is being punished for asking to help after his o.d. Pt is not able to show insight into other reasons that lead to the EE and 2nd cert. Disposition BEHAVIOR: Cooperative and engaging in conversations. He is angry and feels that he is being punished for getting help when he o.d. EYE CONTACT: fair MOOD: agitated but acceptable AFFECT: flat APPETITE: no issues SLEEP(trouble falling/staying asleep: no issues Plan Pt was accepted at [facility] and transportation was arranged with [facility]. Signature Clinician's Name/Title: Rylee Díaz MS Emergency Services Clinician
--- NOTE | 2019-07-28 15:44 | CMDISCH_ITS ---
- If Service Date Differs Date of service: 07/28/19 Time of Service: 15:44 LACE Index Scoring Tool - Questions: Length of Stay (in days): 3 Acuity (Admit via E.D.?): Yes E.D. Visits: 1 - Answers: Total Score: 7 Risk of Readmission: Low Risk Care Management Discharge Reason for Hospitalization: Intravenous overdose ritalin, seroquel, trazodone Discharge Plan: Cali is being transferred to the [facility] for psychiatric stabilization. [facility] are transporting him to the [place]. Discharge plan will be determined by the receiving facility. Patient/Family Education Needs: CM discussed discharge plan, limitations, and expectations of transfer with Cali. Services Needed at Discharge: Psychiatric Facility ([facility]) - MH Services (Omit if N/A) Current MH Services: None
== END 2019-07-28 16:11 | disposition short-term general hospital (02) | DRG 918 ==
LOC: ICU 07-26 17:16 → MS 07-27 10:42 → ICU 07-31 14:50
PROVIDERS: Family Medicine; Admitting Provider Family Medicine; PCP Pediatrics; Visit Provider Internal Medicine
DX: T43.631A Poisoning by methylphenidate, accidental (unintentional), initial encounter (principal); F31.4 Bipolar disorder, current episode depressed, severe, without psychotic features; R45.851 Suicidal ideations; F11.20 Opioid dependence, uncomplicated; T40.1X1A Poisoning by heroin, accidental (unintentional), initial encounter; T40.4X1A Poisoning by other synthetic narcotics, accidental (unintentional), initial encounter; R45.1 Restlessness and agitation; R11.10 Vomiting, unspecified; R00.0 Tachycardia, unspecified; I95.9 Hypotension, unspecified; F90.9 Attention-deficit hyperactivity disorder, unspecified type; F43.10 Post-traumatic stress disorder, unspecified; F19.10 Other psychoactive substance abuse, uncomplicated; F17.210 Nicotine dependence, cigarettes, uncomplicated; R50.9 Fever, unspecified; Z11.4 Encounter for screening for human immunodeficiency virus [HIV]; Z13.89 Encounter for screening for other disorder; Z71.3 Dietary counseling and surveillance
CPT/HCPCS: 36415; 80053; 85027; 86803; 87340; 87389; 99223; 99232; 99233; 99291; 83735; 84484; 85610; 99239; J1644; J2060; J3490